=== PATIENT | male | born 1995 | race African-American/Black ===

== ENCOUNTER 2021-02-14 19:45 | Emergency (ER) | payer OTHER ==
[~2021-02-14] VITALS: Ht 172.7 cm; Wt 68.0 kg
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
[2021-02-14] MEDS ORDERED: topamax (20:01)
[2021-02-14] MEDS ORDERED: keppra (20:01)
--- NOTE | 2021-02-14 20:13 | NUR ---
LAB AT BEDSIDE.
--- NOTE | 2021-02-14 20:15 | NUR ---
DR. CASTILLO AT BEDSIDE [facility] [place]GRESS.
--- NOTE | 2021-02-14 20:20 | NUR ---
DR. CASTILLO MADE AWARE OF BLOOD GLUCOSE LEVEL OF 68.
[2021-02-14 20:39] LABS: HEMATOCRIT 42.7 % (36.7-47.1); MEAN CORPUSCULAR HEMOGLOBIN 32.3 uug (23.8-33.4); MEAN CORPUSCULAR VOLUME 93.6 fL (73.0-96.2); PLATELET COUNT (AUTO) 228 K/uL (152-348)
[2021-02-14 20:41] LABS: CREATININE 1.2 mg/dL (0.6-1.3); POTASSIUM 3.9 mmol/L (3.5-5.1)
[2021-02-14] MEDS ORDERED: HYDROCODONE/APAP 10-325 MG TABLET PO ONE (21:15)
[2021-02-14] MEDS ORDERED: HYDROCODONE/APAP 10-325 MG TABLET ONE (21:45)
--- NOTE | 2021-02-14 22:18 | NUR ---
Patient discharged to home in stable condition. A/O x4, no SOB or labored breathing. Denies pain/discomfort. Clear speech, complete sentences. Written and verbal after care instructions given. Patient verbalizes understanding of instructions. Stressed follow up or return to ER for worsening s/s. Steady gait. Picked up by .
[2021-02-14 22:19] VITALS: BP 105/63
== END 2021-02-14 22:08 | disposition home or self-care (01) ==
LOC: ER 19:45
DX: G40.909 Epilepsy, unspecified, not intractable, without status epilepticus (principal); Z91.14 Patient's other noncompliance with medication regimen
CPT/HCPCS: 36415; 80299; 85025; A4663; J7030